=== PATIENT | male | born 1940 | race Caucasian/White ===

== ENCOUNTER 2020-06-22 22:16 | Emergency (ER) | payer MEDICARE, SELFPAY ==
--- NOTE | ~2020-06-22 | CT_ITS ---
EXAMINATION: CT HEAD WITHOUT CONTRAST CLINICAL INFORMATION: Altered mental status on Coumadin COMPARISON: None TECHNIQUE: Contiguous axial imaging was performed from the skull base to vertex without intravenous administration of contrast. This CT examination was performed using dose optimization techniques as appropriate, variously including the following: *Automated exposure control *Adjustment of mA and/or kV according to patient size (this includes techniques or standardized protocols for targeted exams where dose is matched to indication/reason for exam; i.e. extremities or head) *Use of iterative reconstruction technique DLP: 637 mGy-cm FINDINGS: Moderate diffuse commensurate prominence of ventricles and sulci is noted. Mild periventricular and subcortical white matter patchy hypodensities are visualized. No intracranial hemorrhage, tumors or acute infarcts are visualized. Moderate segmental calcific atherosclerosis of the cavernous portions of the internal carotid arteries is noted. The orbits and globes are normal in appearance. No significant opacification of the visualized paranasal sinuses, mastoid air cells and middle ear cavities is noted. CT/CT head/brain wo con IMPRESSION: 1. No acute intracranial abnormalities. No intracranial hemorrhage or acute infarcts. 2. Moderate diffuse parenchymal volume loss of the brain and mild white matter chronic small vessel ischemic changes.
--- NOTE | ~2020-06-22 | XR_ITS ---
EXAMINATION: XR CHEST CLINICAL INFORMATION: Atrial fibrillation COMPARISON: Outside chest CTA July 2018 TECHNIQUE: Frontal view of the chest was obtained. FINDINGS: There is an aortic stent graft in the aortic arch and descending thoracic aorta that appears unchanged. There is a left subclavian dual chamber pacemaker which appears unchanged. There is a recorder projecting over the left chest wall. There are surgical clips projecting over the left lower neck and cervicothoracic inlet region. There are surgical clips projecting over the right upper lobe under the clavicle. The heart does not appear enlarged. There is a 4 mm dense nodule in the left upper lobe that is stable from previous chest CT likely represents a calcified granuloma. The lungs are otherwise clear. There is no pleural effusion or pneumothorax. Bony structures are unremarkable. XR/XR chest 1V IMPRESSION: Stent graft in the thoracic aorta. Left subclavian dual chamber pacemaker which appears unchanged. No evidence for acute disease in the chest.
--- NOTE | 2020-06-22 22:18 | PC.NURSE ---
pts daughter huang aguilar, left number [phone], reports father has hx of dementia but became acutely more altered this evening
[2020-06-22 22:19] VITALS: BP 133/70; BP 146/64; PULSE 80; RESP 20; TEMP 36.9; O2SAT 96; BMI 22.8
--- NOTE | 2020-06-22 22:26 | ED.AMS ---
HPI - Altered Mental Status General Chief Complaint: Altered Mental Status Stated Complaint: dementia confusion Time Seen by Provider: 06/22/20 22:25 Source: patient and family Mode of arrival: EMS Limitations: altered mental status History of Present Illness HPI narrative: Patient has history of dementia brought by ambulance for worsening of dementia patient was at home and refused to stay in the house saying that is not his house. In the past patient was wandering outside family is unable to take care of him complaint: altered mental status Related Data Allergies Allergy/AdvReac Type Severity Reaction Status Date / Time [id number] Reductase AdvReac Joint Pain Verified 06/22/20 22:37 Inhibitor tamsulosin [From Flomax] AdvReac Hypotension Verified 06/22/20 22:37 Review of Systems Review of Systems: Yes Unobtainable due to mental status PMFSH Past Medical History Medical History Atrial fibrillation Dementia Hyperchloremia Pacemaker Surgical History H/O heart artery stent S/P TURP Social History Social History Alcohol intake: never Smoking Status: Former smoker Smoked in Last 30 Days: No Use of substances other than those prescribed or required for medical reasons: No Advance Directives: No Advance Directives Information Provided: No Physical Exam Vital Signs: Vital Signs: Last Vital Signs Temp 98.4 F 06/22/20 22:28 Pulse 80 06/22/20 22:19 Resp 20 06/22/20 22:28 BP 146/64 H 06/22/20 22:28 Pulse Ox 96 06/22/20 22:19 Body Mass Index 22.8 Const: General: cooperative, healthy appearing, comfortable and no acute distress Nutritional Appearance: average body habitus and well nourished Orientation/consciousness: oriented to person and oriented to place HENMT: Head: Yes normal to inspection, Yes normocephalic and Yes atraumatic Eyes: General: appearance normal, both eyes and all related structures Neck: Neck: Yes normal visual inspection and Yes full ROM Chest: Chest palpation & inspection: normal palpation of entire chest wall Resp: Effort & Inspection: normal respiratory effort Auscultation: clear to auscultation bilaterally, no crackles, no rales and no rhonchi Cardio: Jugular venous distension: no JVD Palpation: normal PMI Rate: regular rate Rhythm: regular rhythm Heart sounds: S1 normal heart sound present and S2 normal heart sound present Peripheral pulses: Peripheral pulses 2+ throughout GI: Inspection: Yes normal to inspection Palpation (GI): Soft to palpation and nontender Auscultation: normal bowel sounds : General: Yes no CVA tenderness Back/Spine/Pelvis: Back: no CVA tenderness Thoracic/Lumbar Spine: thoracic and lumbar spine normal to inspection Skin: General skin exam: no rashes or lesions noted Neuro: General: oriented to person, oriented to place, gait normal, tone normal, moves all extremities, no focal motor deficits and CN's II-XI intact bilaterally Extrem: General: Yes normal to inspection, Yes full ROM and Yes normal gait Psych: Appearance: grossly normal Speech and movement: Normal speech and movement present Affect: normal affect Thought process: Confabulating thought process present MDM - Altered Mental Status MDM Narrative Medical decision making narrative: Patient with significant dementia family will take care of him workup essentially negative for any acute pathology CT scan head is negative labs are stable. Will consult case management for fpc placement Differential Diagnosis Differential diagnosis: Likely dementia Medical Records Attestation: I reviewed the patient's medical records. Lab Data Attestation: I reviewed the patient's lab results. Result diagrams: 06/22/20 23:03 06/22/20 23:03 Labs: Lab Results 06/22/20 06/22/20 06/22/20 Range/Units 23:03 23:03 23:03 WBC 6.1 (4.8-10.8) X10*3/uL RBC 3.91 L (4.60-5.80) X10*6/uL Hgb 12.0 L (14.0-18.0) g/dl Hct 37.1 L (42-52) % MCV 94.9 (80-98) fL MCH 30.7 (27.0-33.0) pg MCHC 32.3 (31.0-36.0) g/dl RDW 13.7 (11.0-16.0) % Plt Count 125 L (160-400) X10*3/uL MPV 9.4 (9.4-12.4) fL Immature Gran % (Auto) 0.0 (0.0-0.4) % Neut % (Auto) 69.6 (45-73) % Lymph % (Auto) 15.7 L (20-40) % [place] % (Auto) 11.2 H (2-11) % Eos % (Auto) 3.0 (0-4) % Baso % (Auto) 0.5 (0-2) % Lymph # (Auto) 1.0 L (1.2-4.9) X10*3/uL [place] # (Auto) 0.7 (0.1-1.2) X10*3/uL Eos # (Auto) 0.2 (0.0-0.4) X10*3/uL Baso # (Auto) 0.0 (0.0-0.2) X10*3/uL Abs Immat Gran (auto) 0.00 (0.00-0.03) X10*3/uL Absolute Neuts (auto) 4.2 (2.0-8.3) X10*3/uL Absolute Nucleated RBC 0.000 (0.0-0.012) X10*3/uL Nucleated RBC % (auto) 0.0 (0.0-0.2) /100WBC PT 33.2 H (10.8-13.0) SEC INR 2.8 H (0.9-1.1) Sodium 143 (135-145) mmol/L Potassium 4.1 (3.3-5.1) mmol/L Chloride 108 (96-108) mmol/L Carbon Dioxide 26 (22-29) mmol/L Anion Gap 13 (12-20) BUN 28 H (9-16) mg/dL Creatinine 1.00 (0.5-1.4) mg/dL Estim Creat Clear Calc 58.3 Estimated GFR > 60 Random Glucose 142 H (60-115) mg/dL Calcium 8.8 (8.4-10.2) mg/dL Total Bilirubin 0.3 (0.0-1.0) mg/dL Direct Bilirubin < 0.2 (0.0-0.5) mg/dL AST 16 (5-37) U/L ALT 13 (0-40) U/L Alkaline Phosphatase 101 (39-117) U/L Total Protein 6.2 L (6.5-8.0) g/dL Albumin 3.9 (3.5-5.0) g/dL COVID-19 (JOHNNY) (Negative) COVID-19 Clin Com 06/22/20 Range/Units 23:30 WBC (4.8-10.8) X10*3/uL RBC (4.60-5.80) X10*6/uL Hgb (14.0-18.0) g/dl Hct (42-52) % MCV (80-98) fL MCH (27.0-33.0) pg MCHC (31.0-36.0) g/dl RDW (11.0-16.0) % Plt Count (160-400) X10*3/uL MPV (9.4-12.4) fL Immature Gran % (Auto) (0.0-0.4) % Neut % (Auto) (45-73) % Lymph % (Auto) (20-40) % [place] % (Auto) (2-11) % Eos % (Auto) (0-4) % Baso % (Auto) (0-2) % Lymph # (Auto) (1.2-4.9) X10*3/uL [place] # (Auto) (0.1-1.2) X10*3/uL Eos # (Auto) (0.0-0.4) X10*3/uL Baso # (Auto) (0.0-0.2) X10*3/uL Abs Immat Gran (auto) (0.00-0.03) X10*3/uL Absolute Neuts (auto) (2.0-8.3) X10*3/uL Absolute Nucleated RBC (0.0-0.012) X10*3/uL Nucleated RBC % (auto) (0.0-0.2) /100WBC PT (10.8-13.0) SEC INR (0.9-1.1) Sodium (135-145) mmol/L Potassium (3.3-5.1) mmol/L Chloride (96-108) mmol/L Carbon Dioxide (22-29) mmol/L Anion Gap (12-20) BUN (9-16) mg/dL Creatinine (0.5-1.4) mg/dL Estim Creat Clear Calc Estimated GFR Random Glucose (60-115) mg/dL Calcium (8.4-10.2) mg/dL Total Bilirubin (0.0-1.0) mg/dL Direct Bilirubin (0.0-0.5) mg/dL AST (5-37) U/L ALT (0-40) U/L Alkaline Phosphatase (39-117) U/L Total Protein (6.5-8.0) g/dL Albumin (3.5-5.0) g/dL COVID-19 (JOHNNY) Negative (Negative) COVID-19 Clin Com See Note ECG Data ECG #1: Attestation: I personally reviewed and interpreted this ECG as follows: Interpretation: Normal sinus rhythm heart rate 75 beats per minutes right bundle-branch block no acute ST T wave changes no acute ischemia Discharge Plan Discharge Clinical Impression: Dementia Qualifiers: Dementia type: Alzheimer's Alzheimer's disease onset: late-onset Dementia behavioral disturbance: with behavioral disturbance Qualified Code(s): G30.1 - Alzheimer's disease with late onset
[2020-06-22 22:28] VITALS: BP 146/64; RESP 20; TEMP 36.9
--- NOTE | 2020-06-22 22:29 | ECG_ITS ---
Test Reason : AMS Blood Pressure : / mmHG Vent. Rate : 075 BPM Atrial Rate : 075 BPM P-R Int : 162 ms QRS Dur : 134 ms QT Int : 412 ms P-R-T Axes : 050 -16 038 degrees QTc Int : 460 ms Normal sinus rhythm Possible Left atrial enlargement Right bundle branch block Abnormal ECG No previous ECGs available Referred By: Matt Vincent Electronically Signed By:Edil Kan
--- NOTE | 2020-06-22 22:33 | PC.NURSE ---
Per pts daughter pt has had an increase in agitation for the past few months and tried to leave the house stating today he wants to go home, I dont live here .
--- NOTE | 2020-06-22 22:42 | PC.NURSE ---
Pts daughter states that she and her mother are interested in LTC facility for pt as they cannot care for him at home as it is not safe for him.
--- NOTE | 2020-06-22 23:09 | PC.NURSE ---
Report taken from milad Bowers RN resuming care. Pt found resting in bed, wakes easily to voice but [place]. Pt aware of pending urine sample, states I can't go right now. Pt provided with bedside urinal. VSS. Labs pending. Lights dim and pillow provided to pt for comfort. Call dooley within reach, continue to monitor.
[2020-06-22 23:10] LABS: Basophils Percent Auto 0.5 % (0-2); Eosinophils Absolute Auto 0.2 X10*3/uL (0.0-0.4); Mean Corpuscular Volume 94.9 fL (80-98); PLT CLUMP 1; Red Cell Distribution Width 13.7 % (11.0-16.0); SCAN SMEAR FLAG 1
[2020-06-22 23:11] LABS: Hematocrit 37.1 % (42-52); Lymphocytes Percent Auto 15.7 % (20-40); Mean Corpuscular HGB Conc 32.3 g/dl (31.0-36.0); Mean Corpuscular Hemoglobin 30.7 pg (27.0-33.0); Mean Platelet Volume 9.4 fL (9.4-12.4); Monocytes Absolute Auto 0.7 X10*3/uL (0.1-1.2); Monocytes Percent Auto 11.2 % (2-11); Neutrophils Absolute Auto 4.2 X10*3/uL (2.0-8.3); Neutrophils Percent Auto 69.6 % (45-73); Red Blood Count 3.91 X10*6/uL (4.60-5.80); White Blood Count 6.1 X10*3/uL (4.8-10.8)
[2020-06-22 23:16] LABS: MANUAL DIFF FLAG NO; Platelet Count 125 X10*3/uL (160-400)
[2020-06-22 23:17] LABS: INTERNATIONAL NORM RATIO 2.8 (0.9-1.1); Prothrombin Time 33.2 SEC (10.8-13.0)
--- NOTE | 2020-06-22 23:35 | PC.NURSE ---
Covid swab obtained by industrial technologist.
[2020-06-22 23:36] LABS: Alanine Aminotransferase 13 U/L (0-40); Albumin Level 3.9 g/dL (3.5-5.0); Alkaline Phosphatase 101 U/L (39-117); Anion Gap 13 (12-20); Aspartate Amino Transferase 16 U/L (5-37); Bilirubin Direct < 0.2 mg/dL (0.0-0.5); Bilirubin Total 0.3 mg/dL (0.0-1.0); Blood Urea Nitrogen 28 mg/dL (9-16); Calcium 8.8 mg/dL (8.4-10.2); Carbon Dioxide 26 mmol/L (22-29); Chloride 108 mmol/L (96-108); Creatinine Clr Calc Pharmacy 58.3; Estimated Glomerular Filt Rate > 60; Glucose Random 142 mg/dL (60-115); Potassium 4.1 mmol/L (3.3-5.1); Sodium 143 mmol/L (135-145); Total Protein 6.2 g/dL (6.5-8.0)
[2020-06-23] VITALS (10 sets, daily range): BP systolic 124–182; BP diastolic 70–91; PULSE 73–110; RESP 15–20; TEMP 36.4–36.6; O2SAT 95–97
[2020-06-23 00:01] LABS: COVID-19 Test Negative (Negative)
[2020-06-23 01:18] LABS: Glucose Urine UA NEG (NEG); Leukocyte Esterase Urine NEG (NEG); Nitrite Urine NEG (NEG); Specific Gravity - Urine 1.025 (1.005-1.025); Urine Blood TRACE (NEG); Urine Ketones NEG (NEG); Urine Protein NEG (NEG-TRACE)
[2020-06-23 01:29] LABS: Appearance Urine CLEAR; Color Urine YELLOW
--- NOTE | 2020-06-23 01:31 | PC.NURSE ---
Urine obtained and sent. Per MD, plan for LTC placement.
[2020-06-23 01:45] LABS: RBC Urine 0-2 /HPF (0); WBC Urine 0 /HPF (0-4)
[2020-06-23 01:46] LABS: Squamous Epithelial Cell Urine TRACE /LPF
--- NOTE | 2020-06-23 02:59 | PC.NURSE ---
Pt constantly getting out of bed. Pt found standing in his room multiple times. Pt expressing frustration, states his bed linens are wet! And noones been in here for hours!! Pt reoriented to place and time, advised by this RN that his bed linens are dry. Pt holding urinal states, this is leaking all over my bed, look it's empty!! This RN explaining to pt that this RN emptied his urinal in the toilet. Pt transferred into a hospital bed, bed alarm armed for pt safety. Pt provided with warm blankets and pillows multiple times. Bed alarming, pt found standing outside of bed, having crawled over rails. Pt states I'm leaving!! Despite reorientation multiple times, pt remains confused, insists that he is leaving, attempting to get dressed and remove IV himself. Pt unsteady on his feet and impulsive. MD at bedside, pt medicated with Benadryl per JUN. Staff assisting pt back into bed. Bed alarm armed. Pt within plain view of nursing station, continue to monitor.
[2020-06-23] MEDS: diphenhydrAMINE HCL 25 MG TABLET 50 MG PO (03:10)
--- NOTE | 2020-06-23 03:40 | PC.NURSE ---
Pt heard removing his IV in bed. This RN at bedside, pt handing this RN his jloop. Pt again trying to get dressed into his personal clothes. Pt assisted into his shoes and into a wheelchair to provide pt some stimulation. Continue to monitor.
[2020-06-23] MEDS: QUEtiapine Fumarate 25 MG TABLET PO (03:55)
--- NOTE | 2020-06-23 04:06 | PC.NURSE ---
Pt medicated with Seroquel for restlessness.
--- NOTE | 2020-06-23 05:23 | PC.NURSE ---
Sitter at bedside as pt continues to get OOB despite reorientation by this RN. Pt very unsteady on his feet after PM medications. Pt assisted into POC, provided with warm blankets, TV on for comfort and distraction. Continue to monitor.
--- NOTE | 2020-06-23 09:56 | PC.NURSE ---
Pt is calm and cooperative. He requires frequent reminders from staff that he is not home and he is in the hospital.
--- NOTE | 2020-06-23 12:32 | PC.NURSE ---
Maggie at bedside. Pt is calm but continues to be confused. adult manager at bedside for update on status of placement.
--- NOTE | 2020-06-23 12:48 | MHC.CM.ED ---
CM met with patient and dtr Noemy in the ED. Explained [facility] will not pay for rehab because patient does not have a skill. Per PT eval patient is ambulating on his own and no skillable needs for PT. Patient has [facility] for primary and [facility] for secondary. Instructed dtr will needs to apply for [facility] and some facilities will take patient with [facility]. Application given to dtr who will get financial documents together, referred patient to our financial dept. Instructed nurse, dtr patient will need to stay in ER until financial returns on Sunday 06/25. Dtr is adamant that patient cannot go home with his as she is unable to care for him. CM will continue to follow patient for discharge needs.
--- NOTE | 2020-06-23 13:32 | PC.NURSE ---
Pt's prakash catheter removed in attempt to do a voiding trial. The catheter was removed at 1300. Pt will be DTV at 1900.
--- NOTE | 2020-06-23 18:36 | PC.NURSE ---
Pt remains calm and cooperative. at bedside.
[2020-06-23] MEDS: Acetaminophen 325 MG TABLET 650 MG PO (18:56)
--- NOTE | 2020-06-23 18:57 | PC.NURSE ---
Pt given tylenol for a headache. Pt able to void 250cc in urinal.
--- NOTE | 2020-06-23 22:45 | PC.NURSE ---
PT HAS 1:1 SITTER, HAS BEEN WALKING MULTIPLE LOOPS AROUND ER WITH WALKER, MOVING WELL.
[2020-06-24] MEDS: risperiDONE 0.25 MG TABLET PO ×2 (01:17→21:38)
[2020-06-24 03:00] VITALS: RESP 18
[2020-06-24 04:00] VITALS: RESP 16
--- NOTE | 2020-06-24 04:07 | PC.NURSE ---
PATIENT AWAKE IN BED. BREATHING EVEN, NON-LABORED. WANTS TO GET OUT OF BED TO WALK. EDUCATED PATIENT THAT IT IS 4 AM. CORRECTED PAITENTS WATCH TO THE TIME CHANGE.
--- NOTE | 2020-06-24 04:57 | PC.NURSE ---
AMBULATED WITH WALKER AND SUPERVISION TO BATHROOM. BREATHING EVEN, NON-LABORED. VOIDED. WANTS TO GO HOME.
[2020-06-24 06:00] VITALS: RESP 14
[2020-06-24] MEDS: Memantine HCl 10 MG TABLET PO ×2 (09:25→21:38)
--- NOTE | 2020-06-24 10:30 | PC.NURSE ---
pt amb in [place] with aide. steady on feet. Awaiting 's arrival.
[2020-06-24] MEDS: QUEtiapine Fumarate 25 MG TABLET PO ×2 (10:50→19:41)
--- NOTE | 2020-06-24 12:22 | PC.NURSE ---
Pt disoriented to time and place but responds to name and identifies his who is at bedside. Is somewhat difficult to redurired to bed and has been OOB often. Assisted to stand with urinale but no urine output. sitter states he went to bathroom around 1030. Will continue to monitor.
--- NOTE | 2020-06-24 14:19 | PC.NURSE ---
sleeping lightly. sitter at bedside.
--- NOTE | 2020-06-24 16:30 | PC.NURSE ---
HAS BEEN ACTIVE AND OUT OF BED WITH CONFUSION FOR LAST SEVERAL HOURS UNTILL NOW. RESTING AGAIN. THIS RN WILL ATTEMPT TO CHECK INR WHEN NEXT AWAKE.
[2020-06-24 18:32] LABS: INTERNATIONAL NORM RATIO 1.6 (0.9-1.1); Prothrombin Time 18.7 SEC (10.8-13.0)
[2020-06-24] MEDS: Warfarin Sodium 1 MG TABLET 1.5 MG PO (19:42)
[2020-06-24 20:00] VITALS: RESP 16
[2020-06-25] VITALS (7 sets, daily range): BP systolic 137–172; BP diastolic 74–88; PULSE 82–98; RESP 16–18; TEMP 36.6–36.8; O2SAT 95–97
[2020-06-25] MEDS: Memantine HCl 10 MG TABLET PO ×2 (10:08→20:21)
--- NOTE | 2020-06-25 13:11 | MHC.CM.ED ---
Met with patient's and daughter Rosa. [employer] application has been completed and provided to Sandhya in Financial Counseling with 1 year of financial information. List of facilities provided to Mrs Wu and Rosa from [facility]. Their choices: 1)[facility] 2)[facility] 3) [facility]. Referrals made via allscripts. T/W also explained it may be difficult to place patient due to behaviors and [facility] application being pending. Both verbalize understanding that referral may have to be broadcasted if the above 3 facilities are not able to offer a bed. Continue to monitor for d/c needs.
[2020-06-25 14:18] LABS: INTERNATIONAL NORM RATIO 1.4 (0.9-1.1); Prothrombin Time 17.2 SEC (10.8-13.0)
--- NOTE | 2020-06-25 14:30 | PC.NURSE ---
sitter discontinued at 1430
[2020-06-25] MEDS: Warfarin Sodium 2.5 MG TABLET 3.75 MG PO (18:25)
--- NOTE | 2020-06-25 18:39 | MHC.CM.ED ---
[facility] is following pending pt being sitter free x 24 hours.[employer] hoda faxed into allscripts and confirmation obtained. CM to follow for d/c needs.
[2020-06-25] MEDS: risperiDONE 0.25 MG TABLET PO (20:21)
--- NOTE | 2020-06-25 23:35 | PC.NURSE ---
PATIENT RESTLESS IN BED. CHECKED FRO WETNESS, NONE NOTED. PAD REPOSITIONED. NO REDNESS NOTED ON BUTTOCKS. BOTH ELBOWS NOTED TO HAVE REDNESS.
[2020-06-26] VITALS (9 sets, daily range): BP systolic 124–158; BP diastolic 63–78; PULSE 69–98; RESP 14–18; TEMP 36.8–36.9; O2SAT 94–99
--- NOTE | 2020-06-26 00:05 | PC.NURSE ---
PATIENT ASKING WHERE HIS IS.
[2020-06-26] MEDS: Memantine HCl 10 MG TABLET PO ×2 (10:05→21:42)
--- NOTE | 2020-06-26 10:48 | MHC.CM.ED ---
Patient remains in ER. [facility] and [facility] are not willing to offer a bed. [facility] does not have a bed to offer. Referral broadcasted in allscripts to all facilities within 10 miles with locked dementia units. Continue to monitor for d/c needs.
--- NOTE | 2020-06-26 13:28 | PC.NURSE ---
PATIENT REFUSING PT INR AT BEDSIDE.
--- NOTE | 2020-06-26 14:25 | PC.NURSE ---
pt continues to refuse ptt/inr becomes aggitated when tring to draw lab, Provider aware
--- NOTE | 2020-06-26 15:32 | PC.NURSE ---
Pt awake and alert, disoriented. Pt a little agitated, redirectable by staff watching movie in bed. Breathing equal and unlabored. Skin warm and well perfused.Will continue to monitor.
[2020-06-26 16:06] LABS: INTERNATIONAL NORM RATIO 1.4 (0.9-1.1); Prothrombin Time 16.1 SEC (10.8-13.0)
--- NOTE | 2020-06-26 16:11 | MHC.CM.ED ---
Patient remains in ER. [facility] is reviewing, however they have some concerns about the patient's bank statements and lack of documentation of rent from daughter Rosa at $725/month. Noemy was contacted via telephone by T/W at [phone]. Noemy stated this was money for their expenses. Sanaz from [facility] contacted via telephone. Left a message requesting Sanaz call Noemy to discuss. Continue to monitor for d/c needs.
--- NOTE | 2020-06-26 16:28 | PC.NURSE ---
Daughter at bedside for visit
--- NOTE | 2020-06-26 18:25 | PC.NURSE ---
Pharmacy notified about Coumadin, plan for it to be brought down when ready
[2020-06-26] MEDS: Warfarin Sodium 1.25 MG HALFTAB PO (18:39)
[2020-06-26] MEDS: Warfarin Sodium 2.5 MG TABLET PO (18:39)
[2020-06-26] MEDS: risperiDONE 0.25 MG TABLET PO (21:43)
--- NOTE | 2020-06-26 21:43 | PC.NURSE ---
pt ambulatory around er 4-5 times with walker. pt not interested in anything else to eat or drink.
[2020-06-26] MEDS: Acetaminophen 325 MG TABLET 975 MG PO (22:13)
[2020-06-26] MEDS: QUEtiapine Fumarate 25 MG TABLET PO (22:13)
[2020-06-27] VITALS (10 sets, daily range): BP systolic 90–110; BP diastolic 46–62; PULSE 78–143; RESP 14–23; TEMP 36.5; O2SAT 95–97
--- NOTE | 2020-06-27 | ECG_ITS ---
Test Reason : REPEAT Blood Pressure : / mmHG Vent. Rate : 141 BPM Atrial Rate : 163 BPM P-R Int : 000 ms QRS Dur : 126 ms QT Int : 310 ms P-R-T Axes : 000 002 002 degrees QTc Int : 474 ms Atrial fibrillation with rapid ventricular response Right bundle branch block Abnormal ECG When compared with ECG of 22-JUN-2020 22:51, Atrial fibrillation has replaced Sinus rhythm Vent. rate has increased BY [address] now depressed in Anterior leads Referred By: Matt Vincent Electronically Signed By:ASIA TOMLINSON MD
[2020-06-27] MEDS: Memantine HCl 10 MG TABLET PO ×2 (08:54→23:10)
[2020-06-27] MEDS: 0.9 % Sodium Chloride 1,000 ML 999 ML IVCONT (11:13)
[2020-06-27] MEDS: dilTIAZem HCL 50 MG/10 ML VIAL 10 MG IVPUSH (11:18)
--- NOTE | 2020-06-27 11:31 | PC.NURSE ---
patient blood pressure noted to be lower than previous shifts. rn went to recheck and was low again. patient also noted to be tachycardic. when pulse palpated, felt irregular. tech at bedside for repeat ekg, patient was normal sinus when brought to ED. at bedside. stated patient does not take meds for rate control. PA? made aware. dr dee to bedside and reviewed chart. plan for repeat labs, iv fluids, give 10 mg Iv cardizem with good effect. waiting lab results.
[2020-06-27 11:33] LABS: MANUAL DIFF FLAG NO
--- NOTE | 2020-06-27 11:35 | PC.NURSE ---
patient blood pressure noted to be lower than previous shifts. rn went to recheck and was low again. patient also noted to be tachycardic. when pulse palpated, felt irregular. tech at bedside for repeat ekg, patient was normal sinus when brought to ED now a fib. at bedside. stated patient does not take meds for rate control. PA/ made aware. dr dee to bedside and reviewed chart. plan for repeat labs, iv fluids, give 10 mg IV cardizem with good effect. waiting lab results.
[2020-06-27 11:36] LABS: Basophils Absolute Auto 0.1 X10*3/uL (0.0-0.2); Basophils Percent Auto 0.5 % (0-2); Eosinophils Absolute Auto 0.1 X10*3/uL (0.0-0.4); Eosinophils Percent Auto 1.2 % (0-4); Hemoglobin 14.3 g/dl (14.0-18.0); Imm Gran Abs Auto 0.03 X10*3/uL (0.00-0.03); Imm Gran Pct Auto 0.3 % (0.0-0.4); Lymphocytes Absolute Auto 1.2 X10*3/uL (1.2-4.9); Lymphocytes Percent Auto 10.9 % (20-40); Mean Corpuscular HGB Conc 31.8 g/dl (31.0-36.0); Mean Corpuscular Hemoglobin 30.4 pg (27.0-33.0); Mean Corpuscular Volume 95.7 fL (80-98); Mean Platelet Volume 9.8 fL (9.4-12.4); Monocytes Absolute Auto 1.1 X10*3/uL (0.1-1.2); Monocytes Percent Auto 10.2 % (2-11); Neutrophils Absolute Auto 8.3 X10*3/uL (2.0-8.3); Neutrophils Percent Auto 76.9 % (45-73); Platelet Count 135 X10*3/uL (160-400); Red Cell Distribution Width 13.7 % (11.0-16.0); White Blood Count 10.8 X10*3/uL (4.8-10.8)
[2020-06-27 11:42] LABS: INTERNATIONAL NORM RATIO 1.6 (0.9-1.1); Prothrombin Time 19.4 SEC (10.8-13.0)
[2020-06-27] MEDS: Warfarin Sodium 5 MG TABLET PO (11:54)
[2020-06-27 11:59] LABS: Anion Gap 14 (12-20); Blood Urea Nitrogen 38 mg/dL (9-16); Calcium 8.8 mg/dL (8.4-10.2); Carbon Dioxide 24 mmol/L (22-29); Chloride 106 mmol/L (96-108); Creatinine Clr Calc Pharmacy 47.8; Estimated Glomerular Filt Rate 57; Glucose Random 123 mg/dL (60-115); Magnesium 2.3 mg/dL (1.6-2.6); Potassium 4.1 mmol/L (3.3-5.1); Sodium 140 mmol/L (135-145)
[2020-06-27 12:20] LABS: B Type Natriuretic Peptide 189 pg/mL (<100); Troponin-I High Sensitivity 26.5 ng/L (<3.5-35.0)
[2020-06-27] MEDS: dilTIAZem HCL CD 120 MG CAP.ER.DEG PO (14:25)
--- NOTE | 2020-06-27 14:38 | MHC.CM.ED ---
Patient remains in Er. Joleen at [facility] will discuss [facility] application with business office again to see if they can offer under [facility] pending. Referral has been broadcasted within 50 miles of miesha' home. Continue to monitor for d/c needs.
[2020-06-27] MEDS: Warfarin Sodium 1.25 MG HALFTAB PO (19:16)
[2020-06-27] MEDS: Warfarin Sodium 2.5 MG TABLET PO (19:16)
[2020-06-27] MEDS: risperiDONE 0.25 MG TABLET PO (23:10)
--- NOTE | 2020-06-28 08:01 | PC.NURSE ---
ATE BREAKFAST, RESTLESS BUT RESPONDS TO VERBAL REDIRECTION
--- NOTE | 2020-06-28 09:45 | PC.NURSE ---
pt was reaching for something and rolled out of the bed, was not witnessed, pt does not c/o anything, md informed head ct ordered as pt on coumadin
[2020-06-28] MEDS: Memantine HCl 10 MG TABLET PO ×2 (11:03→23:42)
[2020-06-28 11:07] VITALS: BP 139/68; PULSE 70; RESP 14; TEMP 36.8; O2SAT 98
--- NOTE | 2020-06-28 11:07 | MHC.CM.ED ---
Patient remains in ER. Received notification from Bryan at [facility] that they will not able to offer patient a bed. [facility] in [place] is requesting updated clinical and a new Covid swab. Clinical sent via [employer]. Covid is pending at this time. Received telephone call from patient's daughter, Noemy. Above information explained. Noemy was hoping patient would stay closer, but understands dementia units that accept [facility] pending applications are difficult to find at this time. Continue to monitor for d/c needs.
[2020-06-28 12:00] VITALS: BP 143/80; PULSE 74; RESP 18; TEMP 36.8; O2SAT 97
[2020-06-28 12:26] LABS: INTERNATIONAL NORM RATIO 2.6 (0.9-1.1); Prothrombin Time 31.2 SEC (10.8-13.0)
[2020-06-28 12:45] LABS: COVID-19 Test Negative (Negative); IDNOW Serial# 9DD0AD1C
--- NOTE | 2020-06-28 12:58 | MHC.CM.ED ---
[facility] is not able to offer a bed at this time. Continue to monitor for d/c needs.
--- NOTE | 2020-06-28 19:36 | PC.NURSE ---
Pt sleeping at this time, will continue to monitor. No acute distress noted.
--- NOTE | 2020-06-28 22:40 | MHC.CM.ED ---
CM noted at 10 pm that [facility] [place] [facility]. Returned reply that CM will reach out to family in the am and get back to them regarding bed acceptance. CM to follow for d/c needs.
[2020-06-28] MEDS: risperiDONE 0.25 MG TABLET PO (23:41)
[2020-06-29] VITALS: RESP 16
--- NOTE | 2020-06-29 07:23 | PC.NURSE ---
PT IS CURRENTLY SOUND ASLEEP, RESPIRATIONS EVEN AND UNLABORED.
--- NOTE | 2020-06-29 08:49 | PC.NURSE ---
PT WOKE UP, APPEARS TO BE IN GOOD SPIRITS. PT SET UP WITH BREAKFAST, BOTTOM DENTURES RINSED OUT AND PT PUT THEM IN PLACE. PT IS CURRENTLY EATING BREAKFAST
--- NOTE | 2020-06-29 09:18 | MHC.CM.ED ---
[facility] in [place] is willing to offer a bed today. T/W spoke with patient's daughter/hcp Noemy via telephone at [phone]. Family is accepting bed. Patient had his 2nd Pz[employer] Covid vaccine on 06/16. Per Candy at [facility], patient can leave here at 11am. [facility] booked. Noemy will be at facility around noon to sign patient in. Patient, Lashanda CARO and Shaista PATRICK aware. Continue to monitor for d/c needs.
[2020-06-29 09:31] VITALS: BP 123/70; PULSE 88; RESP 16; O2SAT 95
[2020-06-29] MEDS: Memantine HCl 10 MG TABLET PO (09:31)
[2020-06-29 10:13] LABS: INTERNATIONAL NORM RATIO 2.8 (0.9-1.1); Prothrombin Time 33.7 SEC (10.8-13.0)
--- NOTE | 2020-06-29 10:23 | PC.NURSE ---
REPORT GIVEN TO PATSY PATRICK AT [facility]
== END 2020-06-29 11:30 | disposition skilled nursing facility (03) ==
PROVIDERS: Physician Assistant; Emergency Provider Internal Medicine; PCP Internal Medicine
DX: G30.1 Alzheimer's disease with late onset (principal); R33.8 Other retention of urine; R00.0 Tachycardia, unspecified; I48.91 Unspecified atrial fibrillation; R51.9 Headache, unspecified; Z20.822 Contact with and (suspected) exposure to COVID-19; Z79.01 Long term (current) use of anticoagulants; Z95.0 Presence of cardiac pacemaker; Z87.891 Personal history of nicotine dependence; Z91.81 History of falling
CPT/HCPCS: 36415; 51702; 51798; 70450; 71045; 80048; 80076; 81001; 83735; 83880; 84484; 85025; 85610; 87635; 93005; 96361; 96374; 97162; 99285; Q0163